=== PATIENT | male | born 1950 ===

== ENCOUNTER 2025-05-29 07:31 | Outpatient (CLI) | payer OTHER ==
[~2025-05-29 07:31] MED LIST: ALTACE10 MG PO; Altace 5 MG CAPSULE PO; Asa-EC 81MG TAB PO; CELEBREX100 MG PO; FLOVENT 110MCG7.9 GM IH; LEVAQUIN-D5W5 MG/M2 PO; PROVENTIL HFA6.7 GM IH; TAMS0.4C PO
[2025-05-29 08:16] LABS: BASO % 0.2 % (0.1-1.2); EOS # 0.21 (0.04-0.54); EOS % 1.2 % (0.7-7.0); LYMPH # 13.62 (1.18-3.74); LYMPH % 76.8 % (19.3-53.1); MEAN PLATELET VOLUME 8.90 fl (9.4-12.4); MONO # 0.67 (0.24-0.82); MONO % 3.8 % (4.7-12.5); NEUT # 3.14 (1.56-6.13); NEUT % 17.7 % (34.0-71.1); RED CELL DISTRIBUTION WIDTH 17.0 % (11.6-14.4)
== END 2025-05-29 07:39 | disposition home or self-care (01) ==
LOC: LAB 07:31
DX: C25.0 Malignant neoplasm of head of pancreas (principal); C91.10 Chronic lymphocytic leukemia of B-cell type not having achieved remission